=== PATIENT | male | born 2000 | race African-American/Black ===

== ENCOUNTER 2021-09-13 23:39 | Emergency (ER) | payer OTHER ==
[~2021-09-13] VITALS: Ht 170.2 cm; Wt 64.9 kg
[2021-09-14 00:10] VITALS: BP 142/62
--- NOTE | 2021-09-14 00:16 | NUR ---
PT SENT TO LOBBY
[2021-09-14 01:52] LABS: APPEARANCE,URINE SL CLOUDY (CLEAR); BILIRUBIN,URINE 1+ (NEGATIVE); BLOOD, URINE NEGATIVE (NEGATIVE); COLOR,URINE YELLOW (YELLOW); LEUKOCYTE ESTERASE ,URINE NEGATIVE (NEGATIVE); NITRITE, URINE NEGATIVE (NEGATIVE); UGLUCOSE NEGATIVE (NEGATIVE)
--- NOTE | 2021-09-14 01:52 | NUR ---
PT TAKEN TO BED #4
[2021-09-14 01:54] LABS: EOSINOPHILS # (AUTO) 0.1 K/uL (0-0.4); EOSINOPHILS % (AUTO) 3.3 % (0.0-4.0); HEMATOCRIT 45.6 % (36-52); HEMOGLOBIN 15.3 g/dL (12.0-18.0); LYMPHOCYTES # (AUTO) 1.3 K/uL (2.0-11.5); LYMPHOCYTES % (AUTO) 33.6 % (20.5-51.1); MEAN CORPUSCULAR HEMOGLOBIN 31 pg (27-31); MEAN CORPUSCULAR HGB CONC 34 g/dL (33-37); MEAN CORPUSCULAR VOLUME 90.8 fL (80-94); MONOCYTES # (AUTO) 0.5 K/uL (0.8-1.0); NEUTROPHILS # (AUTO) 1.9 K/uL (1.8-7.7); NEUTROPHILS % (AUTO) 50.1 % (42.2-75.2); PLATELET COUNT (AUTO) 258 K/uL (140-450); RED BLOOD CELL COUNT(AUTO) 5.02 MIL/uL (4.20-6.10); RED CELL DISTRIBUTION WIDTH 13.6 % (11.6-13.7); WHITE BLOOD COUNT (AUTO) 3.8 K/uL (4.5-11.0)
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
[2021-09-14 02:10] LABS: ANION GAP 13.6 (8-16); CARBON DIOXIDE 28.2 mmol/L (21-32); CREATININE 1.2 mg/dL (0.6-1.3); POTASSIUM 3.8 mmol/L (3.5-5.1)
[2021-09-14 02:16] LABS: ALBUMIN 4.6 g/dL (3.4-5.0); TOTAL BILIRUBIN 1.1 mg/dL (0.0-1.0)
[2021-09-14] MEDS: PANTOPRAZOLE 40 MG INJ VIAL IVP ONE (02:22)
[2021-09-14] MEDS: ONDANSETRON 4 MG/2 ML VIAL IVP ONE (02:23)
[2021-09-14] MEDS: NACL 0.9% 1,000 ML IV SCH (02:23)
[2021-09-14] MEDS: ACETAMINOPHEN EXTRA STRENGTH 500 MG TAB PO ONE (02:30)
--- NOTE | 2021-09-14 02:42 | NUR ---
ULTRASOUND AT BEDSIDE
[2021-09-14] MEDS ORDERED: PANT40EC PO (03:25)
[2021-09-14] MEDS ORDERED: ONDA-188 SL (03:26)
[2021-09-14 03:44] VITALS: BP 142/62
--- NOTE | 2021-09-14 03:44 | NUR ---
Patient discharged with v/s stable. Written and verbal after care instructions given and explained. Patient alert, oriented and verbalized understanding of instructions. Ambulatory with steady gait. All questions addressed prior to discharge. ID band removed. Patient advised to follow up with PMD. Rx of Ondansetron and Pantoprazole given. Patient educated on indication of medication including possible reaction and side effects. Opportunity to ask questions provided and answered. VSS, A/OX4, UNLABORED BREATHING, AMBULATORY, AND CALM DEMEANOR.
== END 2021-09-14 03:44 | disposition home or self-care (01) ==
LOC: MED 23:39
DX: R10.13 Epigastric pain (principal); F12.90 Cannabis use, unspecified, uncomplicated; Z79.899 Other long term (current) drug therapy
CPT/HCPCS: 36415; 76705; 80053; 81003; 83690; 85025; 96361; 96374; 96375; 99284; C9113; J2405; J7030; Q0092

== ENCOUNTER 2021-10-26 11:19 | Emergency (ER) | payer OTHER ==
[~2021-10-26] VITALS: Ht 172.7 cm; Wt 64.4 kg
[~2021-10-26 11:19] MED LIST: ONDA-188 SL; PANT40EC PO
[2021-10-26 11:27] VITALS: BP 147/77
--- NOTE | 2021-10-26 11:32 | NUR ---
Monse boyce in [facility] - 10/26/21 at 1132 by RAVI Patient ambulated to bed 11 with steady/even gait.
--- NOTE | 2021-10-26 11:32 | NUR ---
Patient ambulated to bed 01 with steady/even gait.
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
--- NOTE | 2021-10-26 12:02 | NUR ---
Patient to be transferred to [facility]. Is being transferred due to HIGHER LEVEL OF CARE. Receiving facility has accepting physician and available space. ER physician has signed transfer form. Patient or responsible green party has agreed to transfer and signed form. Patient belongings inventoried and will be sent with patient. Copy of nursing notes, lab reports, EKG, Physicians Orders and X-rays to be sent with patient. Report called to AUSTIN MURILLO at receiving facility. [facility] ambulance service has been called for transfer. ETA is 10 MIN.
--- NOTE | 2021-10-26 12:12 | NUR ---
[facility] AND [facility] AT BEDSIDE
[2021-10-26 12:34] VITALS: BP 147/77
== END 2021-10-26 12:34 | disposition short-term general hospital (02) ==
LOC: MED 11:19
DX: S05.12XA Contusion of eyeball and orbital tissues, left eye, initial encounter (principal); H11.32 Conjunctival hemorrhage, left eye; Z79.899 Other long term (current) drug therapy; W22.8XXA Striking against or struck by other objects, initial encounter; Y92.89 Other specified places as the place of occurrence of the external cause; Y93.89 Activity, other specified; Y99.8 Other external cause status
CPT/HCPCS: 99285

== ENCOUNTER 2023-05-03 08:05 | Emergency (ER) | payer OTHER ==
[~2023-05-03] VITALS: Ht 167.6 cm; Wt 64.6 kg
[2023-05-03 08:19] VITALS: BP 153/78; PULSE 51; RESP 20; TEMP 97.8; O2SAT 100
[2023-05-03] MEDS ORDERED: NAPR-1704 PO (09:16)
== END 2023-05-03 09:35 | disposition home or self-care (01) ==
LOC: MED 08:05
DX: S13.4XXA Sprain of ligaments of cervical spine, initial encounter (principal); S23.3XXA Sprain of ligaments of thoracic spine, initial encounter; S33.5XXA Sprain of ligaments of lumbar spine, initial encounter; S70.11XA Contusion of right thigh, initial encounter; K21.9 Gastro-esophageal reflux disease without esophagitis; F41.9 Anxiety disorder, unspecified; Z79.899 Other long term (current) drug therapy; Z79.1 Long term (current) use of non-steroidal anti-inflammatories (NSAID); V43.52XA Car driver injured in collision with other type car in traffic accident, initial encounter; Y93.89 Activity, other specified; Y92.410 Unspecified street and highway as the place of occurrence of the external cause; Y99.8 Other external cause status
CPT/HCPCS: 99282